=== PATIENT | female | born 1945 | race Caucasian/White ===

== ENCOUNTER 2020-12-08 12:45 | Inpatient (IN) | payer MEDICARE, BC ==
[~2020-12-08] VITALS: Ht 157.5 cm; Wt 62.6 kg
[2020-12-08] MEDS ORDERED: ESCI10TA PO (12:52)
[2020-12-08] MEDS ORDERED: DONE5TAB7 PO (12:52)
[2020-12-08] MEDS ORDERED: ALPR0.255 PO (12:52)
[2020-12-08] MEDS ORDERED: [UNRECOGNIZED DRUG - CODE] PO (12:52)
[2020-12-08] MEDS ORDERED: METF-440 PO (12:52)
[2020-12-08] MEDS ORDERED: ROSU10TA2 PO (12:52)
[2020-12-08 13:25] LABS: BASOPHILS % (AUTO) 0.6 % (0.0-2.0); EOSINOPHILS # (AUTO) 0.1 K/uL (0.0-0.7); EOSINOPHILS % (AUTO) 1.9 % (0.0-7.0); HEMATOCRIT 35.3 % (31.2-41.9); HEMOGLOBIN 11.5 g/dL (10.9-14.3); LYMPHOCYTES # (AUTO) 1.3 K/uL (20.0-40.0); LYMPHOCYTES % (AUTO) 21.2 % (20.5-51.5); MEAN CORPUSCULAR HEMOGLOBIN 28.8 uug (24.7-32.8); MEAN CORPUSCULAR HGB CONC 33 g/dL (32.3-35.6); MEAN CORPUSCULAR VOLUME 88.1 fL (75.5-95.3); MONOCYTES # (AUTO) 0.6 K/uL (2.0-10.0); MONOCYTES % (AUTO) 9.8 % (0.0-11.0); NEUTROPHILS # (AUTO) 3.9 K/uL (1.8-8.9); NEUTROPHILS % (AUTO) 66.5 % (38.5-71.5); PLATELET COUNT (AUTO) 172 K/uL (179-408); RED BLOOD CELL COUNT(AUTO) 4.01 MIL/uL (3.63-4.92); WHITE BLOOD COUNT (AUTO) 5.9 K/uL (3.8-11.8)
[2020-12-08 13:27] LABS: *BILIRUBIN,URIN NEGATIVE (NEGATIVE); *BLOOD, URINE 1+ (NEGATIVE); *CLARITY,URINE CLOUDY (CLEAR); *COLOR,URINE LIGHT YELLOW (YELLOW); *KETONES,URINE 1+ (NEGATIVE); *UROBILINOGEN,URINE 0.2 E.U./dl (NORMAL); LEUKOCYTE ESTERASE ,URINE 2+ (NEGATIVE); NITRITE, URINE NEGATIVE (NEGATIVE); PH,URINE 5.5 (5.0-8.0); UGLUCOSE NEGATIVE (NEGATIVE)
[2020-12-08 13:33] LABS: ETHANOL < 3 MG/DL (0-0)
[2020-12-08 13:39] LABS: ALANINE AMINOTRANSFERASE 49 U/L (14-59); ALKALINE PHOSPHATASE 47 U/L (50-136); ASPARTATE AMINOTRANSFERASE 32 U/L (15-37); BILIRUBIN,DIRECT 0.1 mg/dL (0.0-0.2); BILIRUBIN,TOTAL 0.5 mg/dL (0.2-1.0); CARBON DIOXIDE 26 mmol/L (21-32); CHLORIDE 107 mmol/L (98-107); CREATINE KINASE, TOTAL 339 U/L (26-192); GLUCOSE 114 mg/dL (74-106); POTASSIUM 3.6 mmol/L (3.5-5.1); TOTAL PROTEIN, SERUM 6.5 g/dL (6.4-8.2); UREA NITROGEN, BLOOD 24 mg/dL (7-18)
[2020-12-08 13:40] LABS: *AMPHETAMINE, URINE NEGATIVE (NEGATIVE); *CANNABINOID, URINE NEGATIVE (NEGATIVE); *COCCAINE, URINE NEGATIVE (NEGATIVE); *OPIATE, URINE NEGATIVE (NEGATIVE); *PHENCYCLIDINE SCREEN,URINE NEGATIVE (NEGATIVE)
[2020-12-08 13:40] LABS: ACETAMINOPHEN < 2.0 ug/mL (10-30)
[2020-12-08] MEDS ORDERED: CEFTRIAXONE 1 G in IV DEXTROSE 5% 50 ML IV ONE (13:45)
[2020-12-08 13:46] LABS: THYROID STIMULATING HORMONE 1.684 mIU/mL (0.358-3.740)
[2020-12-08] MEDS ORDERED: CEFTRIAXONE /D5W 50ML IVPB **ER PYXIS IV ONE (13:51)
--- NOTE | 2020-12-08 14:07 | NUR ---
Medically cleared by Dr Allison. Patient's family notified, pending psych crisis evaluation@this time.
[2020-12-08] MEDS ORDERED: DEXTROSE 50% 50 ML DISP.SYRIN IV PRN (14:15)
--- NOTE | 2020-12-08 14:16 | NUR ---
"138 A-Nurse Jesika will be assigned for this patient." per U staff Lamberto.
--- NOTE | 2020-12-08 14:37 | NUR ---
[email or web address]
[2020-12-08] MEDS ORDERED: OLANZAPINE 10 MG VIAL IM ONE ×2 (15:30→15:33)
--- NOTE | 2020-12-08 15:45 | NUR ---
Gps/World Geography Teacher- Received report from [facility] ER Nurse. Admitted patient via wheel chair, alert, confused, answer to simple questions. Patient was taken to shower, offered by SHEARING MACHINE TENDER, cooperative during shower. Skin intact, patches of scattered small bruising on her arms. Noted patient starteto get agitated, yelling hitting staff as they provide simple care. Dr Stovall was called by Charge Nurse Lamberto and informed of patient's behavior orders received. . Safety reviewed. Unable to get informations during the admission, patient was confused, and stated to get agitated. Patient kept up in the blayne-chair by the Nurses station, to be monitored closely for her safety. Unable to keep patient in her wheel chair kept standing up, gait unsteady , difficulty following direction.
[2020-12-08] MEDS ORDERED: MAG HYDROX/AL HYDROX/SIMETH 30 ML LIQUID UDC PO PRN (16:00)
[2020-12-08] MEDS ORDERED: MAGNESIUM HYDROXIDE 30 ML LIQUID UDC PO PRN (16:00)
[2020-12-08] MEDS: BLOOD SUGAR DIAGNOSTIC 1 EACH STRIP VI SCH ×2 (16:30→21:00)
[2020-12-08] MEDS ORDERED: LORAZEPAM 2 MG/1 ML VIAL IM ONE (16:45)
[2020-12-08] MEDS ORDERED: HALOPERIDOL LACTATE 5 MG/1 ML VIAL IM ONE (16:45)
[2020-12-08] MEDS: CEphaleXIN 500 MG CAPSULE PO SCH (17:00)
[2020-12-08 17:11] VITALS: BP 148/76
[2020-12-08 18:31] LABS: BACTERIA,URINE MODERATE /HPF (NONE SEEN); RBC,URINE 20-50 /HPF (0-3); SQUAMOUS EPITHELIAL CELL,UR FEW /HPF (NONE SEEN); WBC,URINE 50-80 /HPF (0-3)
[2020-12-08 20:54] VITALS: BP 157/91
--- NOTE | 2020-12-08 21:55 | NUR ---
Received pt sitting in the blayne- chair. No acute distress noted. Pt noted to be confused. Refused accucheck. Risks and benefits explained. Safety measures maintained. Will continue to monitor.
[2020-12-08] MEDS: TEMAZEPAM 7.5 MG CAPSULE PO PRN (23:03)
[2020-12-09] MEDS: BLOOD SUGAR DIAGNOSTIC 1 EACH STRIP VI SCH ×5 (06:40→20:21)
[2020-12-09 07:30] VITALS: BP 138/71
[2020-12-09 07:55] LABS: BILIRUBIN,TOTAL 0.5 mg/dL (0.2-1.0); CREATININE 0.9 mg/dL (0.6-1.3); POTASSIUM 3.3 mmol/L (3.5-5.1); TOTAL PROTEIN, SERUM 6.7 g/dL (6.4-8.2)
[2020-12-09] MEDS: DONEPEZIL 5 MG TABLET PO SCH ×2 (09:00→13:25)
[2020-12-09] MEDS ORDERED: [UNRECOGNIZED DRUG - MIXTURE] PO SCH (09:00)
[2020-12-09] MEDS: METFORMIN HCL 500 MG TABLET PO SCH (09:00)
[2020-12-09] MEDS: ATORVASTATIN 20 MG TABLET PO SCH ×2 (09:00→13:25)
[2020-12-09] MEDS: CEphaleXIN 500 MG CAPSULE PO SCH ×3 (09:00→16:51)
[2020-12-09] MEDS: POTASSIUM CHLORIDE 20 MEQ TAB.PRT.SR PO ONE ×2 (09:34→13:26)
--- NOTE | 2020-12-09 15:53 | NUR ---
GPS: Nursing Notes: Thought Disorder: Patient is awake and responding to her name, ambulatory with assistance, disoriented, labile, violent outburst without provocation, threw her water and her food on the floor, pointing at staff face with her finger stating "PIECE OF SHIT..", redirected and reoriented during shift, but gets easily irritable, impaired judgment, confused, disorganized, resistant with nursing care, loud and pressured speech, poor anger management, unable to formulate a viable plan for self care, continue with treatment plan.
[2020-12-09 16:00] VITALS: BP 151/71
[2020-12-09] MEDS ORDERED: RIVASTIGMINE TARTRATE 1.5 MG CAPSULE PO SCH (21:00)
[2020-12-09] MEDS: DIVALPROEX 250 MG TABLET.DR PO SCH (21:41)
[2020-12-09] MEDS: RIVASTIGMINE TARTRATE 1.5 MG CAPSULE PO SCH (21:42)
[2020-12-09] MEDS: TEMAZEPAM 7.5 MG CAPSULE PO PRN (21:42)
[2020-12-09] MEDS: risperiDONE 0.5 MG TABLET PO SCH (21:42)
--- NOTE | 2020-12-10 03:43 | NUR ---
Received patient, banging on the table and yelling at anyone that were passing by. A few times this patient tried to hit at any staff that were in arms length. A calm approach and reorientation of the situation was attempted, multiple times , with little effect Patient is confused and unable to engage in any meaningful conversation. The speech is garbled and nonsensical . Frozen Food Selector was able however to administer medications, once patient calmed down. After that, this assembly instructions writer ambulated patient to the bathroom then up and down hallway, then to her room. Patient fell asleep without difficulty. Safety strategies are in place at this time.Continuing to monitor for safety and behavior escalation with combativeness.
[2020-12-10] MEDS: LORAZEPAM 0.5 MG TABLET PO PRN ×2 (05:45→15:38)
[2020-12-10] MEDS: BLOOD SUGAR DIAGNOSTIC 1 EACH STRIP VI SCH ×4 (05:45→20:17)
--- NOTE | 2020-12-10 06:09 | NUR ---
Patient out of bed x2 this am. Up to chair this am with assist. Aggressive verbally to peers and staff. Total sleep hours are 5.45. Continuing to deescalate patient and reorient her as needed.
--- NOTE | 2020-12-10 06:15 | NUR ---
Patient was calm last night but remains very forgetful. Redirection and reorientation provided when needed. Total sleep hours were 7.00. Plan is for patient to be discharged in am.
[2020-12-10 07:30] VITALS: BP 131/74
[2020-12-10] MEDS: CEphaleXIN 500 MG CAPSULE PO SCH ×2 (08:33→17:14)
[2020-12-10] MEDS: DIVALPROEX 250 MG TABLET.DR PO SCH ×2 (08:33→20:38)
[2020-12-10] MEDS: RIVASTIGMINE TARTRATE 1.5 MG CAPSULE PO SCH ×2 (08:33→20:38)
[2020-12-10] MEDS: ATORVASTATIN 20 MG TABLET PO SCH (08:33)
[2020-12-10] MEDS: METFORMIN HCL 500 MG TABLET PO SCH (08:33)
[2020-12-10] MEDS: DONEPEZIL 5 MG TABLET PO SCH (08:33)
[2020-12-10] MEDS: risperiDONE 0.5 MG TABLET PO SCH ×2 (08:34→20:38)
[2020-12-10] MEDS ORDERED: LORAZEPAM 2 MG/1 ML VIAL IM ONE (08:45)
[2020-12-10] MEDS ORDERED: HALOPERIDOL LACTATE 5 MG/1 ML VIAL IM ONE (08:45)
--- NOTE | 2020-12-10 08:45 | NUR ---
GPS: Nursing Notes: Severe Agitation: Patient is awake and responding to her name, poor anger management, loud and pressured speech, verbal abusive, using profanities toward staff and peers, overly disruptive by shouting profanities toward staff, setting limits, but unable to be redirected, combative behavior by kicking the charge nurse, slapping a staff, threw her breakfast on the floor, episodes of shouting incoherently, restless behavior, Dr. Wilman cavazos, continue to monitor for safety, continue with treatment plan.
--- NOTE | 2020-12-10 08:58 | NUR ---
GPS: Nursing Notes: Chemical Restraint: Patient is awake and responding to her name by shouting profanities, "PIECE OF SHIT...", "YOU..SHIT FACE..", trying to bite staff when assisting her with ADL's, violent outburst without provocation, confused, disoriented, impaired judgment, restless behavior, kick staff, striking out, restless behavior, R=20, Dr. Stovall called back and ordered: Haldol 2mg IM and Ativan 1mg IM X1 STAT, medications given at this time, continue to monitor for safety, continue with treatment plan.
[2020-12-10] MEDS: INSULIN REGULAR, HUMAN 300 UNIT/3 ML VIAL SQ PRN ×2 (09:05→22:33)
--- NOTE | 2020-12-10 09:28 | NUR ---
GPS: Nursing Notes: Reassessment of Chemical Restraint: Patient is awake and responding to her name, disoriented, confused, disorganized, impaired judgment, poor insight, patient became calm, stopped shouting, IM medications were effective, R=20, continue to monitor for safety, continue with treatment plan.
[2020-12-10] MEDS: ACETAMINOPHEN 325 MG TABLET PO PRN (15:38)
[2020-12-10 16:00] VITALS: BP 146/83
[2020-12-10 20:10] VITALS: BP 125/71
[2020-12-10] MEDS: TEMAZEPAM 7.5 MG CAPSULE PO PRN (21:20)
--- NOTE | 2020-12-11 03:56 | NUR ---
Received patient last night up in chair, pointing her finger at the staff and other patients, yelling out insults. This patient is confused and unable to engage in any meaningful conversation, requiring constant reorientation. Despite using a calm approach, a lot of encouragement and reassurance , it was difficult to give medication to the patient. Eventually patient complied . This patient continues to be combative and restless. Safety strategies are in place including frequent rounding and bed alarm. The patient is asleep at this time, will continuing with treatment plan.
[2020-12-11] MEDS: BLOOD SUGAR DIAGNOSTIC 1 EACH STRIP VI SCH ×4 (06:22→21:20)
[2020-12-11 07:30] VITALS: BP 142/84
[2020-12-11] MEDS: LORAZEPAM 0.5 MG TABLET PO PRN (07:45)
[2020-12-11] MEDS: ACETAMINOPHEN 325 MG TABLET PO PRN ×3 (07:45→23:10)
[2020-12-11] MEDS: DONEPEZIL 5 MG TABLET PO SCH (08:51)
[2020-12-11] MEDS: DIVALPROEX 250 MG TABLET.DR PO SCH ×2 (08:51→21:19)
[2020-12-11] MEDS: risperiDONE 0.5 MG TABLET PO SCH ×2 (08:51→21:20)
[2020-12-11] MEDS: ATORVASTATIN 20 MG TABLET PO SCH (08:51)
[2020-12-11] MEDS: METFORMIN HCL 500 MG TABLET PO SCH (08:52)
[2020-12-11] MEDS: RIVASTIGMINE TARTRATE 1.5 MG CAPSULE PO SCH ×2 (08:52→21:32)
[2020-12-11] MEDS: CEphaleXIN 500 MG CAPSULE PO SCH ×2 (08:52→16:51)
--- NOTE | 2020-12-11 11:24 | NUR ---
JO ANN Initial Discharge Plan: Patient is currently a resident of [address] [address] ([phone]). JO ANN spoke with [facility] at [place] ([phone]) who stated that patient is accepted back upon discharge. JO ANN spoke with patient's , Ric ([phone]) who is involved in the patient's care. JO ANN will continue to work with patient, family, and MD to ensure a safe and proper discharge plan.
--- NOTE | 2020-12-11 11:41 | NUR ---
Firearms Report: Flux Tube Attendant completed and submitted a [employer] firearms report for 5150 grave disability certifications. A copy of report has been placed in patient chart.
--- NOTE | 2020-12-11 11:42 | NUR ---
JO ANN Family Contact: JO ANN spoke with patient's , Ric ([phone]) who is involved in the patient's care and discussed treatment and discharge plan. Ric stated he is the DPOA and will be sending the document shortly. Ric provided this social worker clinical collateral information (see SW assessment).
--- NOTE | 2020-12-11 12:13 | NUR ---
DPOA Documents: Patient's , Ric ([phone]) provided photo copy of the DPOA documents and the copy has been placed in the patient's chart.
[2020-12-11 15:00] VITALS: BP 138/78
--- NOTE | 2020-12-11 16:20 | NUR ---
GPS: Nursing Notes: Thought Disorder: Patient is awake and responding to her name, impaired judgment, confused, disoriented, disorganized, resistant with nursing care, poor appetite, episode of striking out, angry affect, talking incoherently, refusing her accu-checks, verbal abusive at times, using profanities toward staff, redirected and reoriented during shift, unable to formulate a viable plan for self care, continue with treatment plan.
[2020-12-11] MEDS: INSULIN REGULAR, HUMAN 300 UNIT/3 ML VIAL SQ PRN (21:25)
--- NOTE | 2020-12-12 02:54 | NUR ---
RECEIVED PATIENT IN HALLWAY AWAKE IN BUCK CHAIR. NOTED CONFUSED, DISORGANIZED, TALKING TO HERSELF INCOHERENTLY AND TRYING TO BITE STAFF WHEN WE PASS BY.ALSO HAD A FEW EPISODES OF STRIKING OUT. RE DIRECTION AND RE ORIENTATION WORKED FOR ONLY A WHILE. BLOOD SUGAR CHECK ON HER WAS 167 AND COVERAGE GIVEN WITH A SNACK. SAFETY MEASURES IN PLACE. WILL CONTINUE TO MONITOR.
[2020-12-12] MEDS: BLOOD SUGAR DIAGNOSTIC 1 EACH STRIP VI SCH ×3 (06:43→16:19)
[2020-12-12 07:30] VITALS: BP 105/74
[2020-12-12] MEDS: RIVASTIGMINE TARTRATE 1.5 MG CAPSULE PO SCH (08:49)
[2020-12-12] MEDS: METFORMIN HCL 500 MG TABLET PO SCH (08:49)
[2020-12-12] MEDS: ATORVASTATIN 20 MG TABLET PO SCH (08:49)
[2020-12-12] MEDS: DONEPEZIL 5 MG TABLET PO SCH (08:49)
[2020-12-12] MEDS: CEphaleXIN 500 MG CAPSULE PO SCH ×2 (08:49→16:20)
[2020-12-12] MEDS: DIVALPROEX 250 MG TABLET.DR PO SCH (08:49)
[2020-12-12] MEDS: risperiDONE 0.5 MG TABLET PO SCH (08:49)
[2020-12-12 15:01] VITALS: BP 132/71
[2020-12-12] MEDS: LORAZEPAM 0.5 MG TABLET PO PRN (16:04)
[2020-12-12] MEDS: ACETAMINOPHEN 325 MG TABLET PO PRN (16:04)
--- NOTE | 2020-12-12 18:32 | NUR ---
GPS: Nursing Notes: Assisted with ADL'S: Patient ambulatory with assistance and fww, taken to the bathroom and changed her diaper then want back to the blayne chair, responding to verbal commands, continue to monitor for safety, continue with treatment plan.
--- NOTE | 2020-12-12 19:35 | NUR ---
GPS: Nursing Notes: At 19:10, patient found pale and unresponsive by staff and code blue was call and code blue initiated, but terminated immediately due to patient being DNR/DNI per advance directive. Patient pronounced by the ER doctor - Dez Marsh at 19:28.
--- NOTE | 2020-12-12 19:37 | NUR ---
GPS: Nursing Notes: Charge nurse paged Dr. Ibarra due patient , waiting for Dr. Ibarra to call back.
--- NOTE | 2020-12-12 19:40 | NUR ---
GPS: Pt's notified of pt's expiration.
--- NOTE | 2020-12-12 20:02 | NUR ---
GPS: Nursing Notes: Charge nurse page Dr. Ibarra for the second time, left message on his exchange and endorsed to incoming shift.
--- NOTE | 2020-12-12 21:24 | NUR ---
gps: fAMILY ARRIVED TO SEE PT'S REMAINS.
--- NOTE | 2020-12-12 23:30 | NUR ---
[facility] NOTIFIED, [id number], AND STATED THAT PATIENT IS NOT ELIGIBLE FOR [facility]GAN DONATIONS.
--- NOTE | 2020-12-13 | NUR ---
PATIENT'S REMAINS WERE RELEASED TO [facility]. DR. HERNANDEZ WAS NOTIFIED OF PATIENT'S AT APPROX 2320. BELONGINGS WERE GIVEN TO NEXT OF KIN AT APPROX 2200. ADMITTING DEPT WAS ALSO NOTIFIED OF PATIENT .
--- NOTE | 2020-12-13 07:30 | NUR ---
A CALL WAS PLACED TO [facility] OFFICE AT [phone] TO INFORMED OF PATIENT'S . PER, STAFF HONG, PATIENT DOES NOT QUALIFIED FOR EXAMINATION.
--- NOTE | 2020-12-13 07:50 | NUR ---
A VOICE MESSAGE WAS LEFT ON [phone] TO OPAL SELF TO INFORMED HER ABOUT PATIENT'S PASSING AWAY.
== END 2020-12-12 19:30 | disposition expired | DRG 885 ==
LOC: ER 12:45 → GPS 15:14
PROVIDERS: ADMIT Psychiatry & Neurology Psychiatry; ATTEND Registered Nurse
PROC: 0BH18EZ Insertion of Endotracheal Airway into Trachea, Via Natural or Artificial Opening Endoscopic (ICD-10-PCS; principal; 2020-12-12)
PROC: 5A12012 Performance of Cardiac Output, Single, Manual (ICD-10-PCS; 2020-12-12)
DX: F39 Unspecified mood [affective] disorder (principal); G92 Toxic encephalopathy; N39.0 Urinary tract infection, site not specified; F23 Brief psychotic disorder; E78.5 Hyperlipidemia, unspecified; E87.6 Hypokalemia; F32.9 Major depressive disorder, single episode, unspecified; I10 Essential (primary) hypertension; E11.9 Type 2 diabetes mellitus without complications; F29 Unspecified psychosis not due to a substance or known physiological condition; B96.89 Other specified bacterial agents as the cause of diseases classified elsewhere; F03.90 Unspecified dementia, unspecified severity, without behavioral disturbance, psychotic disturbance, mood disturbance, and anxiety; Z66 Do not resuscitate; Z20.822 Contact with and (suspected) exposure to COVID-19
CPT/HCPCS: 36415; 84443; 85025; 87077; 87086; 93005; A4663; G0480; J0696; J1630; J1815; J2060; J2358; J3490